=== PATIENT | female | born 1945 | race Caucasian/White ===

== ENCOUNTER → 2016-06-05 | Outpatient (CLI) | payer MEDICARE, BC ==
[~2016-06-05] MED LIST: ALB/IPRATROPIUM/1 E1 INH; ALLERGY10 M1 PO; AMLODIPINE BESY10 MG PO; CALTRATE 600+D PO; CLARITIN10 M2 PO; DIFLUCAN100 MG PO; DULOXETINE HCL30 MG PO; FAMOTIDINE PO; HAIR, SKIN & N1 EACH PO; HYDROCHLOROTH12.5 MG PO; KEFLEX500 M1 PO; LOSARTAN POTAS100 MG PO; MEDROL4 MG/DOSE- PO; MELATONIN1 MG PO; NEURONTIN PO; OMEPRAZOLE20 M2 PO; PERCOCET; PERCOCET 7.5-31 EACH PO; PREDNISONE PO; PRILOSEC PO; PROAIR HFA8.5 GM INH; ZITHROMAX500 MG PO; ZOLPIDEM TARTRAT5 MG PO
--- NOTE | ~2016-06-05 | CT2 ---
[facility] A Service [facility] RADIOLOGY TEXT RESULTS PATIENT: SOHAIL CHILDS LOCATION: [facility] : 47 UNIT #: [id number] AGE: [address]: Joshua Douglas MD SEX: F ORDER DR: [id number] [facility] [address] [place], [place] [address] [id number] O MR#: [id number] [facility] #: [id number] NAME: SOHAIL CHILDS : 1945 SEX: F STUDY DATE/TIME: 06/05/2016 12:00 UNIT: [facility] ROOM: STUDY DESCRIPTION: CT Abd and Pelv W Cont Attending Physician: Joshua Douglas M.D. Referring Physician: Joshua Douglas M.D. Ordering Physician: Joshua Douglas M.D. Primary Care Physician: Jenelle Adrian M.D. MEDICAL IMAGING REPORT This report is preliminary unless electronic signature is present EXAM CT abdomen and pelvis 06/05/2016. INDICATIONS Left upper quadrant abdominal pain. COMPARISON None available. TECHNIQUE CT of the abdomen and pelvis with p.o. and IV contrast (100 mL Isovue-370 IV contrast). Coronal and sagittal reconstructions were obtained. This CT exam was performed with one or more of the following radiation dose reduction techniques: automatic exposure control, adjustment of mA and/or kV according to patient size, and iterative reconstruction. FINDINGS CT ABDOMEN: Liver, pancreas, spleen, and adrenal glands are within normal limits. There is a small cyst in the mid pole right kidney. No hydronephrosis. The bowel is not dilated. No enlarged retroperitoneal or mesenteric lymph nodes. The appendix is normal. CT PELVIS: There is some sigmoid colon diverticula. No diverticulitis. The uterus and ovaries are within normal limits. Bladder is decompressed. No acute osseous abnormalities. IMPRESSION Diverticulosis. No evidence of acute diverticulitis. Dictated by... Kunal Harden M.D. [facility] RADIOLOGY TEXT RESULTS PATIENT: SOHAIL CHILDS LOCATION: [facility] : 47 UNIT #: [id number] AGE: [address]: Joshua Douglas MD SEX: F ORDER DR: THIS IS AN ELECTRONICALLY VERIFIED REPORT Kunal Harden M.D. at 06/05/2016 4:38 PM Yoanna TD: 06/05/2016 15:32 JOB #: [id number] MEDICAL IMAGING REPORT COPY
[2016-06-05 10:55] LABS: POC - CREATININE 0.75 mg/dL (0.44-1.03); POC - GFR >60.0 mL/min (>60)
== END | disposition home or self-care (01) ==
LOC: CCAT 10:05
PROVIDERS: Internal Medicine
DX: R10.9 Unspecified abdominal pain (principal); K57.30 Diverticulosis of large intestine without perforation or abscess without bleeding; K57.90 Diverticulosis of intestine, part unspecified, without perforation or abscess without bleeding
CPT/HCPCS: 74177; 82565; Q9967